=== PATIENT | male | born 1950 ===

== ENCOUNTER 2021-07-09 05:15 | Day surgery (SDC) | payer OTHER ==
[~2021-07-09] VITALS: Ht 180.3 cm; Wt 99.8 kg
[~2021-07-09 05:15] MED LIST: AVALIDE 300-121 EACH PO; BISTOLIC PO; CARDUR PO; CLONAZEPAM1 MG PO; CRESTOR10 MG PO; NORVASC5 MG PO; OMEGA-3 1,0001 EACH PO; UROXATRAL10 MG PO
[2021-07-09] MEDS ORDERED: NEURONTIN800 MG PO (12:14)
[2021-07-09] MEDS ORDERED: AMOX-CLAV 875-1 EACH PO (12:14)
[2021-07-09] MEDS ORDERED: PERCOCET 5-3251 EACH PO (12:14)
[2021-07-09] MEDS ORDERED: COLACE100 MG PO (12:14)
[2021-07-09] MEDS ORDERED: DIAZEPAM5 MG PO (12:14)
[2021-07-09] MEDS ORDERED: MEDROLPACK PO (12:19)
== END 2021-07-10 14:40 | disposition home or self-care (01) ==
LOC: CIR.AMB 05:15 → O/R 05:15 → SURH 05:15 → EDSTATUS 11:30 → SURH 11:30 → PED 15:40 → O/R 15:40 → PED 07-10 14:40 → CIR.AMB 07-10 14:40
PROVIDERS: ATTEND Orthopaedic Surgery Orthopaedic Surgery of the Spine
PROC: 0SG00A0 Fusion of Lumbar Vertebral Joint with Interbody Fusion Device, Anterior Approach, Anterior Column, Open Approach (ICD-10-PCS; 2021-07-09)
PROC: 0SG0071 Fusion of Lumbar Vertebral Joint with Autologous Tissue Substitute, Posterior Approach, Posterior Column, Open Approach (ICD-10-PCS; 2021-07-09)
PROC: 07DR0ZZ Extraction of Iliac Bone Marrow, Open Approach (ICD-10-PCS; 2021-07-09)
PROC: 0SB20ZZ Excision of Lumbar Vertebral Disc, Open Approach (ICD-10-PCS; principal; 2021-07-09 11:15)
DX: M48.062 Spinal stenosis, lumbar region with neurogenic claudication (principal); M51.36 Other intervertebral disc degeneration, lumbar region
CPT/HCPCS: 20938; 20939; 22533; 22612; 22840; 22845; 22853; C1776